=== PATIENT | male | born 1975 | race Caucasian/White ===

== ENCOUNTER 2023-03-08 06:22 | Emergency (ER) | payer OTHER, SELFPAY ==
[2023-03-08 06:30] VITALS: BP 157/84; PULSE 72; RESP 16; TEMP 36.7; O2SAT 100; BMI 20.1
--- NOTE | 2023-03-08 06:46 | ED.WOUNDLAC ---
HPI - Wound/Laceration General Chief Complaint: Wound/Laceration Stated Complaint: tried to remove a tick and part of is stuck Time Seen by Provider: 03/08/23 06:26 Source: patient Mode of arrival: Ambulatory History of Present Illness HPI narrative: Patient is a 47-year-old male who states that this morning he noticed a tick on his right lower abdomen. He tried to remove it on his own but he thought that there was a small piece that was still present. Review of Systems Integumentary/Breasts Skin/Breast: Reports system reviewed and no additional complaints, except as documented Patient History Social History Smoking Status: Never smoker Smoking Status: Never smoker Substance Use Type: does not use Exam Initial Vital Signs Initial Vital Signs: Vital Signs Temperature 98.1 F 03/08/23 06:30 Pulse Rate 72 03/08/23 06:30 Respiratory Rate 16 03/08/23 06:30 Blood Pressure 157/84 H 03/08/23 06:30 Pulse Oximetry 100 03/08/23 06:30 Oxygen Delivery Method Room Air 03/08/23 06:30 Skin Other: Right lower abdomen there is a small area of induration with what appears to be a small black center. Course Vital Signs Vital signs: Vital Signs - 8 hr 03/08/23 06:30 Temperature 98.1 F Pulse Rate 72 Respiratory Rate 16 Blood Pressure 157/84 H Pulse Oximetry 100 Oxygen Delivery Method Room Air MDM - Wound/Laceration MDM Narrative Medical decision making narrative: Attempted to remove the tick under magnification. I was able to remove a very small amount of material. Approximately 0.5 cc of 1% lidocaine without epi was placed in the area to anesthetize it and then a small incision was made in the skin. Exploration was done under magnification and there was no further foreign substance noted. Her no signs of infection. Patient was discharged home with return precautions. Discharge Plan Departure Patient Disposition: Home Clinical Impression: Tick bite Instructions: How to Remove a Tick Activity Restrictions/Additional Instructions: You can shower like normal. You can put topical antibiotic over the small little incision site. It should heal within the next couple days. Return to the emergency department for new or worsening symptoms. Stand Alone Forms: Patient Portal/API
== END 2023-03-08 06:50 | disposition home or self-care (01) ==
PROVIDERS: Emergency Provider Emergency Medicine
DX: S30.861A Insect bite (nonvenomous) of abdominal wall, initial encounter (principal); W57.XXXA Bitten or stung by nonvenomous insect and other nonvenomous arthropods, initial encounter
CPT/HCPCS: 99281

== ENCOUNTER → 2025-03-30 07:47 | Outpatient (CLI) | payer OTHER, SELFPAY ==
[2025-03-30 08:32] LABS: Hematocrit 40.8 % (41-53); Hemoglobin 13.9 g/dL (13.5-17.5); Mean Corpuscular HGB Conc 34.0 % (30-36); Mean Corpuscular Hemoglobin 31.3 PG (26-34); Mean Corpuscular Volume 91.9 fL (80-100); Platelet Count 165 X10^3/uL (150-400)
[2025-03-30 08:42] LABS: Appearance Urine UA CLEAR; Bilirubin Urine UA NEGATIVE (NEGATIVE); Color Urine UA YELLOW; Glucose Urine UA NEGATIVE (Negative); Ketones Urine UA NEGATIVE (NEGATIVE); Leukocyte Esterase Urine UA NEGATIVE (NEGATIVE); Nitrite Urine UA NEGATIVE (Negative); Occult Blood Urine UA NEGATIVE (Negative); Protein Urine UA NEGATIVE (Negative); Specific Gravity Urine UA 1.010 (1.000-1.035); Urobilinogen Urine UA 0.2 E.U./dL (0.2); pH Urine UA 7.0 (4.5-8.0)
[2025-03-30 08:48] LABS: Culture Indicated Urine Cult Not Indicated
[2025-03-30 08:50] LABS: Alanine Aminotransferase 14 IU/L (<50); Albumin 4.3 g/dL (3.5-5.0); Albumin Globulin Ratio 1.6 (1.0-2.8); Alkaline Phosphatase 81 U/L (38-126); Blood Urea Nitrogen 12 mg/dL (9-20); Calcium 9.1 mg/dL (8.4-10.2); Carbon Dioxide 27 mmol/L (22-32); Chloride 102 mmol/L (98-107); Cholesterol 160 mg/dL (140-199); Estimated Glomerular Filt Rate > 60 mL/min (>60); Globulin 2.7 g/dL (1.7-4.1); Glucose 93 mg/dL (70-99); HDL Cholesterol 49 mg/dL (40-60); HEMOLYSIS < 15 (0-50); Potassium 4.6 mmol/L (3.4-5.1); Sodium 134 mmol/L (137-145); Total Protein 7.0 g/dL (6.3-8.2); Triglycerides 40 mg/dL (35-150); Uric Acid 5.2 mg/dL (3.5-8.5)
[2025-03-31 15:36] LABS: Hep C Virus Ab w/Reflex Quant NEGATIVE s/c (NEGATIVE)
== END ==
PROVIDERS: PCP Family Medicine; Referring Provider Family Medicine; Visit Provider Family Medicine
DX: Z13.9 Encounter for screening, unspecified (principal); Z13.228 Encounter for screening for other metabolic disorders; M1A.9XX0 Chronic gout, unspecified, without tophus (tophi); Z13.220 Encounter for screening for lipoid disorders; Z11.59 Encounter for screening for other viral diseases; N50.819 Testicular pain, unspecified
CPT/HCPCS: 36415; 80053; 80061; 81001; 84550; 85027; 86803

== ENCOUNTER → 2025-04-03 08:18 | Outpatient (CLI) | payer OTHER, SELFPAY ==
--- NOTE | 2025-04-03 08:19 | DI.US.S_ITS ---
PROCEDURE: US SCROTUM INDICATIONS: LEFT SCROTAL PAIN TECHNIQUE: Real-time scanning was performed of the scrotum and testicles, with image documentation. Color and pulse Doppler interrogation was performed of both testicles. COMPARISON: None. FINDINGS: Right: Testicle is normal in size at 4.6 x 2.1 x 2.9 cm, and homogenous in echotexture. Epididymis is normal in overall size and morphology. Trace hydrocele without varicocele. Overlying scrotal skin is normal in thickness. Left: Testicle is normal in size at 4.4 x 2.7 x 3.3 cm, and homogeneous in echotexture. Epididymis is normal in overall size and morphology. Trace hydrocele and large varicocele. Overlying scrotal skin is normal in thickness. Doppler: Color and pulse Doppler demonstrate normal and symmetric arterial flow in both testicles. IMPRESSION: * Large left varicocele. Consider referral to interventional radiology for consultation followed by possible left gonadal vein embolization. * Trace bilateral hydroceles. Dictated by: Jones Srinivasan M.D. on 04/03/2025 at 13:47 Approved by: Jones Srinivasan M.D. on 04/03/2025 at 13:51
== END ==
LOC: US 08:19
PROVIDERS: PCP Family Medicine; Referring Provider Family Medicine; Visit Provider Family Medicine
DX: I86.1 Scrotal varices (principal); N50.819 Testicular pain, unspecified
CPT/HCPCS: 76870; 93975